=== PATIENT | female | born 1950 | race Caucasian/White ===

== ENCOUNTER 2020-10-11 14:58 | Outpatient (REF) | payer MEDICARE, SELFPAY ==
--- NOTE | ~2020-10-11 | XR_ITS ---
EXAMINATION: XR FOOT, RIGHT CLINICAL INFORMATION: Pain in right foot. COMPARISON: None TECHNIQUE: 3 views of the right foot. FINDINGS: Status post arthrodesis with orthopedic screws traversing across the second and third metatarsal tarsal joint. No acute abnormality. No fracture or dislocation. No bone destruction or abnormal periosteal reaction. Mild joint narrowing of the first metatarsal phalangeal joint with marginal bone spurs of the metatarsal head. There is a small plantar calcaneal spur. XR/XR foot RT min 3V IMPRESSION: Status post arthrodesis of the second and third metatarsal tarsal joint. 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 Small plantar calcaneal spur. No acute abnormality of the foot.
== END 2020-10-11 14:59 | disposition home or self-care (01) ==
LOC: HO.HMGCX 14:58
PROVIDERS: Visit Provider Hospitalist
DX: M79.671 Pain in right foot (principal)
CPT/HCPCS: 73630